=== PATIENT | female | born 1960 | race Caucasian/White ===

== ENCOUNTER 2016-09-09 21:00 | Emergency (ER) | payer OTHER ==
[~2016-09-09] VITALS: Ht 157.5 cm; Wt 61.4 kg
[~2016-09-09 21:00] MED LIST: ALBU8.5H2 INHALATION; ASPI-973 PO; BECL8.7A6 INHALATION; CALC-78 PO; CYA1000I IM; FLUO20CA25 PO; FLUT9.9S NS; LEVO175T5 PO; LORA0.5T PO; METO-301 PO; MULTIVITAMIN PO; RIZA10TA28 PO; ZONI100C6 PO; [UNRECOGNIZED DRUG - OTHER] PO
[2016-09-09 21:04] VITALS: BP 118/63; PULSE 61; RESP 20; O2SAT 100
--- NOTE | 2016-09-09 21:11 | ED.REPORT ---
HPI-General Illness Date of Service September 09, 2016 ED Provider: Dwaine Lopez MD A 56 year old female with a history of anxiety and thyroidectomy presents to the ED with sub sternal chest pain that began at 1999. She describes the pain as a "heavy pressure" and rates her worst pain as a 9/10. Her pain resolved without intervention upon arrival to ED. Associated symptoms include SOB. Her symptoms initially began as a migraine and jaw pain. She currently takes Levothyroxine. She denies any previous cardiac history. Pertinent cardiac risk factors include family history of heart disease and everyday smoker. Nursing Notes Stated Complaint: CHEST PRESSURE Chief Complaint: Chest Pain Nursing Notes Reviewed: Yes Allergies: Coded Allergies: No Known Allergies (Unverified , 12/09/15) Scheduled ([Multivitamin/Fluor]) 1 TAB PO DAILY Aspirin (Aspirin) 81 Mg Tablet 81 MG PO DAILY Beclomethasone Dipropionate (Qvar) 8.7 Gm Aer.w.adap 1 PUFF INHALATION BID Calcium Carbonate/Vitamin D3 (Calcium 500 + Vit D Caplet) 1 Each Tablet 1 EACH PO DAILY Cyanocobalamin (Cyanocobalamin Injection) 1,000 Mcg/1 Ml Vial 1,000 MCG IM Monthly Fluoxetine (Fluoxetine) 20 Mg Capsule 40 MG PO DAILY Fluticasone Propionate (Flonase Allergy Relief) 50 Mcg/Actuation [place].susp 1 SPRAY NS BID Zonisamide (Zonisamide) 100 Mg Capsule 200 MG PO DAILY Scheduled PRN Albuterol HFA (Proair HFA) 8.5 Gm Hfa.aer.ad 2 PUFFS INHALATION Q4H PRN PRN For Shortness of Breath Levothyroxine (Levothyroxine) 175 Mcg Tablet 112 MCG PO DAILY PRN PRN AD Lorazepam (Lorazepam) 0.5 Mg Tablet 0.5 MG PO TID PRN PRN For Anxiety Metoclopramide (Reglan) 10 Mg Tablet 10 MG PO TID PRN PRN For Nausea Rizatriptan ODT (Rizatriptan) 10 Mg Tablet 10 MG PO PRN PRN PRN Headache General Time Seen by : 21:09 Chief Complaint Chest pain Hx Obtained From: Patient Arrived By: Walk-in Sudden in Onset?: No Onset Occurred: 1 - 4 hours ago (1999) Symptom Duration: Since onset Location: : Chest Quality: Heaviness, Pressure Radiation: : Does not radiate Severity: Current: Pain level 9 out of 10 Severity: Maximum: Pain level 9 out of 10 Associated with: Reports: Headache, Shortness of breath Pertinent Negative: Pt denies other symptoms Recent Healthcare: No recent hospitalization, Recent doctor visit )( CAD Risk Stratification Smoking Risk factors reviewed )( TAD Risk Stratification Risk factors reviewed )( PE Risk Stratification Risk factors reviewed PERC Rule Age 50 or over PERC Result: One or more crit "Yes" Well's Criteria for PE Well's PE Score: 0-2 pts (low risk 3.6%) Past Medical History Past Medical History Anxiety Migraines Past Surgical History Thyroidectomy Family History Heart disease Smoking History Current Every Day Smoker Social History Other Social History: Good social support, Local resident Ambulatory Status Independent Review of Systems Jaw pain Full Review of Systems Constitutional: Denies: Chills, Fever Respiratory: Reports: Shortness of breath Cardiovascular: Reports: Chest pain GI: Denies: Nausea, Vomiting Neurologic: Reports: Headache, Denies: Change LOC Complete sys rev & neg: except as marked. Physical Exam Vital Signs Vital Signs Date Time Temp Pulse Resp B/P Pulse Ox O2 Delivery O2 Flow Rate FiO2 09/10/16 00:52 49 16 113/61 96 Room Air 09/09/16 22:45 58 18 115/51 98 Room Air 09/09/16 21:40 55 15 111/66 97 Room Air 09/09/16 21:04 36.2 61 20 118/63 100 Room Air Initial VS: Reviewed, Vital signs normal Neck: Supple, Non-tender, Full range of motion Skin: Warm, Dry, No cyanosis Neurologic: Alert, Oriented, Nonfocal Psychiatric: Mood/affect normal, Behavior normal, Normal thought content General/Constitutional: Awake, Alert, No acute distress Head / Eyes: Atraumatic, Normocephalic, PERRL Respiratory / Chest: Atraumatic, Breath sounds = bilat, No respiratory distress Diminished Breath Sounds: Positive: Decreased bilateral (Distant lung sounds ) CHEST: Midline chest wall tenderness Cardiovascular: Heart rate NL, Regular rhythm, Heart sounds NL Abdomen: Atraumatic, Soft Upper Extremities Upper Extremity / MS: Atraumatic, Neurologic intact, Vascular intact, No edema Lower Extremity / Pelvis / MS: Atraumatic, Neurologic intact, Vascular intact, No edema Interpretation & Diagnostics Lab Results Interpretation Result Diagram: 09/09/16213509/09/162135 Test 09/09/16 21:36 09/09/16 22:06 09/09/16 23:45 White Blood Count 5.3th/mm3 (3.8-10.1) Red Blood Count 3.78mil/mm3 (3.90-5.20) Hemoglobin 11.8g/dL (12.0-15.6) Hematocrit 36.0% (35.0-46.0) Mean Corpuscular Volume 95.2fL (81-100) Mean Corpuscular Hemoglobin 31.2pg (27.0-35.0) Mean Corpuscular Hemoglobin Concent 32.8% (32.0-37.0) Red Cell Distribution Width 12.7% (12.3-15.4) Platelet Count 168bil/L (150-400) Neutrophils (%) (Auto) 44.0% (40-74) Lymphocytes (%) (Auto) 47.2% (14-46) Monocytes (%) (Auto) 5.6% (4-12) Eosinophils (%) (Auto) 2.6% (0-5) Basophils (%) (Auto) 0.6% (0-3) D-Dimer < 0.50mg/L FEU (<0.50) Sodium Level 139mEq/L (134-144) Potassium Level 4.3mEq/L (3.5-5.2) Chloride Level 105mEq/L (97-108) Carbon Dioxide Level 20mmol/L (18-29) Blood Urea Nitrogen 11mg/dL (6-24) Creatinine 0.86mg/dL (0.57-1.00) Estimat Glomerular Filtration Rate 98mL/min (>59) Glucose Level 92mg/dL (60-99) Calcium Level 9.4mg/dL (8.5-10.1) Magnesium Level 2.0mg/dL (1.6-2.6) Total Bilirubin 0.2mg/dL (0.0-1.2) Aspartate Amino Transf (AST/SGOT) 20U/L (0-50) Alanine Aminotransferase (ALT/SGPT) 13U/L (0-32) Alkaline Phosphatase 74U/L (25-150) Total Protein 7.0g/dL (6.4-8.4) Albumin 4.0g/dL (3.4-5.0) Hold Lozano Top Tube Received (Received) Hold Urine Received (Received) Troponin T 0.010ug/L (0.0-0.011) Lab values outside NL range: no clinical significance. ECG Interpretation ECG Interpretation: Sinus rhythm Rate 62 Incomplete right bundle branch block Precordial leads Time: 21:14 Interpreted by: ED physician Normal ECG Interpretation: No change from prior ECGs (07/04/15) X-Ray Chest Interpretation Chest Xray Interpretation: IMPRESSION: No acute cardiopulmonary findings. Dictated by: Court Dougherty M.D. on 09/09/2016 at 21:32 Interpretation / Wet Read by: Interpret - Radiologist Re-Eval/Medical Decision Time of Eval: 22:09 Patient Status: Condition improved, Pain improved Re-Evaluation/Progress Note: Patient condition is evaluated. Her pain has improved and currently rates her pain as a 6/10. She is informed of the intended treatment plan. Time of Eval: 23:38 Patient Status: Condition improved Re-Evaluation/Progress Note: Patient is rechecked and is resting comfortably. Headache has improved. Time of Eval: 00:35 Patient Status: Condition improved Re-Evaluation/Progress Note: Patient is reevaluated. Her headache and chest pain have improved. She rates the pain as 3/10. Pt understands and agrees with the treatment plan. Counseled Regarding: Diagnosis, Lab results, Need for follow-up, When/why to return to ED Discharge & Departure Departure Notes Low risk patient with negative ED workup to include d-dimer, 2 troponins and 2 EKGs. She is being discharged home to follow up with her primary doctor. Primary Impression: Chest pain with low risk for cardiac etiology Disposition: Home Discharge Condition All VS Reviewed: Yes Condition: Improved Patient Instructions: Chest Pain (ED) Additional Instructions: There is no evidence of severe heart or lung disease. EKG is negative, chest x- ray is negative, cardiac enzyme test is negative. Follow-up with your regular doctor for routine treadmill testing to look even more closely at her heart. Return here if he gets significant worsening. Referrals: Gaye Hi MD (PCP) Scribe Attestation Portions of this note were transcribed by Arian Osborn. I, Dr. Lopez personally performed the history, physical exam and medical decision-making; I reviewed and confirmed the accuracy of the information in the transcribed note. Signed by: Cruz Marinelli, 09/10/16 0052. copies to: Gaye Hi MD, Dwaine Boothe MD September 09, 2016 21:11 ARIAN OSBORN September 09, 2016 21:24
--- NOTE | 2016-09-09 21:34 | DRSVH ---
PROCEDURE: X-RAY CHEST ONE VIEW, PORTABLE ([id number]) INDICATIONS: cp TECHNIQUE: One view of the chest was acquired. COMPARISON: [facility], CR, XR CHEST 2VW, 12/30/2015, 15:13. FINDINGS: Surgical changes and devices: None. Lungs and pleura: No pleural effusions or pneumothorax. Lungs are clear. Mediastinum: Mediastinal contours appear normal. Heart size is normal. Bones and chest wall: No suspicious bony lesions. Overlying soft tissues appear unremarkable. IMPRESSION: No acute cardiopulmonary findings. Dictated by: Court Dougherty M.D. on 09/09/2016 at 21:32 Approved by: Court Dougherty M.D. on 09/09/2016 at 21:32
[2016-09-09 21:40] VITALS: BP 111/66; PULSE 55; RESP 15; O2SAT 97
[2016-09-09 21:50] LABS: BASOPHILS % (AUTO) 0.6 % (0-3); EOSINOPHILS % (AUTO) 2.6 % (0-5); MONOCYTES % (AUTO) 5.6 % (4-12); Mean Corpuscular Hemoglobin 31.2 pg (27.0-35.0); Mean Corpuscular Volume 95.2 fL (81-100); Platelet Count 168 bil/L (150-400)
[2016-09-09 22:13] LABS: TROPONIN T 0.01 ug/L (0.0-0.011)
[2016-09-09 22:45] VITALS: BP 115/51; PULSE 58; RESP 18; O2SAT 98
[2016-09-10 00:52] VITALS: BP 113/61; PULSE 49; RESP 16; O2SAT 96
== END 2016-09-10 00:53 | disposition home or self-care (01) ==
LOC: SED 21:00
DX: R07.89 Other chest pain (principal); R06.02 Shortness of breath; F17.200 Nicotine dependence, unspecified, uncomplicated; Z79.82 Long term (current) use of aspirin

== ENCOUNTER 2016-11-05 23:35 | Emergency (ER) | payer OTHER ==
[~2016-11-05] VITALS: Ht 160 cm; Wt 61.4 kg
[2016-11-05 23:41] VITALS: BP 106/65; PULSE 77; RESP 18; O2SAT 100
--- NOTE | 2016-11-06 00:41 | ED.REPORT ---
HPI-Head Prob / Injury Date of Service Nov 06, 2016 ED Provider: Reza Hamilton DO Patient is a 56 year old female who presents to the ED due to a fall. She complains of a headache after slipped and hitting the back of her head on the cement ground at work. Patient denies losing consciousness, neck pain or vomiting. The patient reports that she takes daily ASA. Nursing Notes Stated Complaint: HEAD INJURY Chief Complaint: Head, Face, Neck Trauma Nursing Notes Reviewed: Yes Allergies: Coded Allergies: No Known Allergies (Unverified , 11/05/16) Scheduled ([Multivitamin/Fluor]) 1 TAB PO DAILY Aspirin (Aspirin) 81 Mg Tablet 81 MG PO DAILY Beclomethasone Dipropionate (Qvar) 8.7 Gm Aer.w.adap 1 PUFF INHALATION BID Calcium Carbonate/Vitamin D3 (Calcium 500 + Vit D Caplet) 1 Each Tablet 1 EACH PO DAILY Cyanocobalamin (Cyanocobalamin Injection) 1,000 Mcg/1 Ml Vial 1,000 MCG IM Monthly Fluoxetine (Fluoxetine) 20 Mg Capsule 40 MG PO DAILY Fluticasone Propionate (Flonase Allergy Relief) 50 Mcg/Actuation [place].susp 1 SPRAY NS BID Zonisamide (Zonisamide) 100 Mg Capsule 200 MG PO DAILY Scheduled PRN Albuterol HFA (Proair HFA) 8.5 Gm Hfa.aer.ad 2 PUFFS INHALATION Q4H PRN PRN For Shortness of Breath Levothyroxine (Levothyroxine) 175 Mcg Tablet 112 MCG PO DAILY PRN PRN AD Lorazepam (Lorazepam) 0.5 Mg Tablet 0.5 MG PO TID PRN PRN For Anxiety Metoclopramide (Reglan) 10 Mg Tablet 10 MG PO TID PRN PRN For Nausea Rizatriptan ODT (Rizatriptan) 10 Mg Tablet 10 MG PO PRN PRN PRN Headache General Time Seen by Provider: 00:40 Chief Complaint Blunt head trauma Hx Obtained From: Patient Arrived By: Walk-in Onset Occurred: Just prior to arrival Symptom Duration: Since onset Caused by: Fall while (at work) Context: Occurred at: Workplace Location: : Occipital region L: Occipital region R Quality: Painful Severity: Current: Moderate Recent Healthcare: No recent hospitalization, Recent doctor visit Similar Sx Previous: No Past Medical History Past Medical History Anxiety Migraines Past Surgical History Thyroidectomy Family History Heart disease Smoking History Current Every Day Smoker Social History Other Social History: Good social support, , Local resident Ambulatory Status Independent Review of Systems Constitutional: Denies: Chills, Fever GI: Denies: Nausea, Vomiting Skin: Denies Itching, Denies Rash Neurologic: Reports: Headache, Denies: Change LOC, Numbness, Weakness Complete sys rev & neg: except as marked. Respiratory: Denies: Non-productive cough, Shortness of breath Physical Exam Initial Vital Signs Vital Signs (First) Date Time Temp Pulse Resp B/P Pulse Ox O2 Delivery O2 Flow Rate FiO2 11/05/16 23:41 37.0 77 18 106/65 100 Room Air Initial VS: Reviewed General/Constitutional: Awake, Alert Head / Eyes: PERRL, EOMI apple sized hematoma to the posterior occiput ENT: Atraumatic, Airway patent, Mucous membranes moist Neck: Atraumatic, Supple, Non-tender Neurologic: Oriented X3, Speech NL, No motor deficits, No sensory deficits Respiratory / Chest: Atraumatic, Breath sounds NL, Breath sounds = bilat, No respiratory distress Cardiovascular: Heart rate NL, Regular rhythm, Heart sounds NL Interpretation & Diagnostics CT Head Interpretation IMPRESSION: No evidence of hemorrhage, mass or acute infarct. at 0121 Interpretation / Wet Read by: Interpret - Radiologist Re-Eval/Medical Decision Med Decision/Clinical Course Patient uses daily aspirin. Suspicion for a skull fracture, CT ordered. CT was unremarkable. Patient was discharged home with Whitmer and Zofran. Re-Evaluation/Progress #1: Time of Eval: 01:26 Re-Evaluation/Progress Note: Discussed wet read of CT and plan to wait for official report. Re-Evaluation/Progress #2: Time of Eval: 01:36 Re-Evaluation/Progress Note: Discussed CT and plan for discharge. Patient understands and agrees to plan. All questions were addressed. Counseled Regarding: Diagnosis, Lab results, Need for follow-up, When/why to return to ED Discharge & Departure Primary Impression: Contusion Encounter type: initial encounter Contusion area: head Contusion of head detail: other part of head Qualified Code: S00.83XA - Contusion of other part of head, initial encounter Disposition: Home All VS Reviewed: Yes Condition: Stable Patient Instructions: Contusion in Adults (ED) Additional Instructions: Your CT was normal and reassuring. You can 1-2 Whitmer every 6 hours as needed for pain. Do not drink alcohol or drive with the pain medication. Do not combine with Acetaminophen. You can also take 1 Zofran every 8 hours as needed for nausea. Do not drive tonight as you received pain medication in the ED. Follow up with your primary care physician later this week. Return to the emergency department if you develop any new or concerning symptoms including vomiting or increasing pain. Referrals: Gaye Hi MD (PCP) Cruz Attestation Portions of this note were transcribed by Tina Powers. I, Dr. Hamilton personally performed the history, physical exam and medical decision-making; I reviewed and confirmed the accuracy of the information in the transcribed note. Signed by: Cruz Limon, 11/06/16 and 0104 copies to: Gaye Hi MD, Todd P DO Nov 06, 2016 00:40 Colette Powers Nov 06, 2016 00:51
[2016-11-06] MEDS ORDERED: _Ondansetron ODT 4 mg Tablet PO PRN (01:30)
[2016-11-06] MEDS ORDERED: _HYDROcodone/APAP 5-325 mg Tablet PO PRN (01:30)
[2016-11-06 01:52] VITALS: BP 119/52; PULSE 64; RESP 18; O2SAT 98
--- NOTE | 2016-11-06 07:41 | DRSVH ---
PROCEDURE: CT BRAIN WITHOUT CONTRAST ([id number]) INDICATIONS: head injury TECHNIQUE: Noncontrast 4.5 mm thick angled axial sections acquired from the foramen magnum to the vertex, with c oronal reformats. COMPARISON: [facility], [place], NECK SOFT TIS. W/CONTRAST, 12/02/2013, 13:21. FINDINGS: Image quality: Excellent. CSF spaces: Basal cisterns are patent. No extra-axial fluid collections. Ventricles are normal in size and shape. Brain: No midline shift. No intracranial masses or hemorrhage. Awad-white matter interface is norm al. Skull and face: Calvarium and visualized facial bones are intact, without suspicious lesions. Poste rior right paracentral scalp contusion. Sinuses: Visualized sinuses and mastoids are clear. IMPRESSION: 1. No CT evidence of acute intracranial pathology. 2. Right paracentral posterior scalp contusion. 3. There are no discrepancies with the preliminary report. Dictated by: Lauri Morgan M.D. on 11/06/2016 at 7:31 Approved by: Lauri Morgan M.D. on 11/06/2016 at 7:34
== END 2016-11-06 01:52 | disposition home or self-care (01) ==
LOC: SED 23:35
DX: S00.83XA Contusion of other part of head, initial encounter (principal); S06.0X9A Concussion with loss of consciousness of unspecified duration, initial encounter; S00.03XA Contusion of scalp, initial encounter; W01.198A Fall on same level from slipping, tripping and stumbling with subsequent striking against other object, initial encounter; Y93.89 Activity, other specified; Y92.69 Other specified industrial and construction area as the place of occurrence of the external cause; Y99.0 Civilian activity done for income or pay; F41.9 Anxiety disorder, unspecified; G43.909 Migraine, unspecified, not intractable, without status migrainosus; F17.200 Nicotine dependence, unspecified, uncomplicated; Z79.82 Long term (current) use of aspirin